=== PATIENT | female | born 2000 | race African-American/Black ===

== ENCOUNTER 2020-07-14 20:51 | Emergency (ER) | payer SELFPAY ==
[2020-07-14] MEDS ORDERED: DOXEPIN 10 MG CAPSULE PO STA (21:12)
[2020-07-14] MEDS ORDERED: predniSONE 20 MG TABLET PO STA (21:12)
--- NOTE | 2020-07-14 21:14 | ED Physician Documentation ---
PD HPI SKIN - Stated complaint Stated Complaint: ALLERGIC REACTION - Chief complaint Chief Complaint: Allergic Rx - History obtained from History obtained from: Patient - Additional information Additional information: She recently moved from [place] about 2 weeks ago. Shortly thereafter started to react to something, probably environmental. She developed eye puffiness, itching all over. She was seen in [place] 10 days ago for an allergic reaction and treated with meds there which improved things but still has eye puffiness and itching. No throat swelling now. Review of Systems Constitutional: reports: Reviewed and negative Ears: reports: Reviewed and negative Nose: reports: Reviewed and negative Throat: reports: Reviewed and negative Cardiac: reports: Reviewed and negative PD PAST MEDICAL HISTORY - Present Medications Home Medications: Ambulatory Orders Medication Instructions Recorded Confirmed Doxepin [SINEquan] 10 mg PO TID PRN #30 cap 07/14/20 predniSONE [Deltasone] 20 mg PO [id number] #21 tab 07/14/20 - Allergies Allergies/Adverse Reactions: Allergies Allergy/AdvReac Type Severity Reaction Status Date / Time No Known Drug Allergies Allergy Verified 07/14/20 20:54 PD ED PE NORMAL - Vitals Vital signs reviewed: Yes - General General: Alert and oriented X 3, No acute distress - HEENT HEENT: PERRL (Mild periorbital angioedema, oropharynx is normal.) - Cardiac Cardiac: RRR, No murmur - Respiratory Respiratory: No respiratory distress, Clear bilaterally - Abdomen Abdomen: Non tender - Neuro Neuro: Alert and oriented X 3, Normal speech Results - Vitals Vitals: Vital Signs - 24 hr 07/14/20 20:54 Temperature 36.5 C Heart Rate 93 Respiratory 16 Rate Blood Pressure 132/71 H O2 Saturation 100 Oxygen O2 Source Room air Departure - Departure Disposition: 01 Home, Self Care Clinical Impression: Allergic urticaria Condition: Good Record reviewed to determine appropriate education?: Yes Instructions: ED Allergic Reaction General Other Prescriptions: predniSONE [Deltasone] 20 mg PO [id number] #21 tab Doxepin [SINEquan] 10 mg PO TID PRN #30 cap PRN Reason: Itching Comments: Return if worsening, given recurrent symptoms seems reasonable to follow-up with an gluing machine operator electronic, the closest you would be in [place], phone number would be [phone].
[2020-07-15 05:43] VITALS: BP 131/70
== END 2020-07-14 21:58 | disposition home or self-care (01) ==
LOC: ED 20:51
DX: T78.3XXA Angioneurotic edema, initial encounter (principal); X58.XXXA Exposure to other specified factors, initial encounter
CPT/HCPCS: 99282; 99284; A9270; J7512